=== PATIENT | male | born 1960 | race Caucasian/White ===

== ENCOUNTER 2025-01-04 06:23 | Inpatient (IN) | payer OTHER ==
[2025-01-04] MEDS ORDERED: SUCCINYLCHOLINE CHLORIDE 200 MG/10 ML SYRINGE ONE ×2 (07:35→15:20)
[2025-01-04] MEDS ORDERED: MIDAZOLAM HCL 2 MG/2 ML SINGLE DOSE VIAL ONE ×3 (07:35→15:39)
[2025-01-04] MEDS ORDERED: ROCURONIUM BROMIDE 50 MG/5 ML SYRINGE ONE (07:35)
[2025-01-04] MEDS ORDERED: PROPOFOL 20 ML ONE ×9 (07:35→16:23)
[2025-01-04] MEDS ORDERED: THROMBIN (BOVINE) 20,000 UNIT VIAL TP ONE (08:03)
[2025-01-04] MEDS ORDERED: VANCOMYCIN 1,000 MG VIAL (RESTRICTED TO ID ONLY) ONE ×2 (08:03→09:53)
[2025-01-04] MEDS ORDERED: THROMBIN (BOVINE) 5,000 UNIT VIAL TP ONE (08:03)
[2025-01-04] MEDS ORDERED: BUPIVACAINE HCL/PF 0.5% (5MG/ML) 10 ML VIAL ONE (08:03)
[2025-01-04] MEDS ORDERED: BUPIVACAINE LIPOSOME/PF (EXPAREL) 266 MG/20 ML VIAL ONE (08:04)
[2025-01-04] MEDS ORDERED: LIDOCAINE 1%/EPI 1:100000 (20 ML MULTI DOSE VIAL) ONE (08:04)
[2025-01-04 08:15] LABS: EPI CELLS 2 /uL (0-25.1); HYALINE CASTS 0 /uL (0-3.1); URINE APPEARANCE CLEAR; URINE BACTERIA 7 /uL (0-1359); URINE BILIRUBIN NEGATIVE (NEGATIVE); URINE COLOR YELLOW; URINE GLUCOSE (UA) NEGATIVE (NEGATIVE); URINE KETONE NEGATIVE (NEGATIVE); URINE LEUK ESTERASE NEGATIVE (NEGATIVE); URINE NITRITE NEGATIVE (NEGATIVE); URINE PROTEIN NEGATIVE (NEGATIVE); URINE RBC 21 /uL (0-23.9); URINE UROBILINOGEN 0.2 mg/dL (0.2-1.0); URINE WBC 2 /uL (0-25.8)
[2025-01-04] MEDS ORDERED: BACITRACIN ZINC 15 GM TUBE TOPICAL OINTMENT ONE (08:18)
[2025-01-04] MEDS ORDERED: KETAMINE HCL 200 MG/20 ML VIAL ONE (08:35)
[2025-01-04] MEDS ORDERED: PROPOFOL 60 ML ONE ×3 (08:41→12:06)
[2025-01-04] MEDS ORDERED: DEXAMETHASONE SOD PHOSPHATE 4 MG/1 ML VIAL ONE (08:58)
[2025-01-04] MEDS ORDERED: ONDANSETRON 4 MG/2 ML VIAL ONE ×2 (09:02→14:30)
[2025-01-04] MEDS ORDERED: METOPROLOL TARTRATE 5 MG/5 ML VIAL ONE (09:05)
[2025-01-04] MEDS: LIDOCAINE 1%/EPI 1:100000 (50 ML MULTI DOSE VIAL) INF ONE (09:30)
[2025-01-04] MEDS: BUPIVACAINE HCL/PF 0.5% (5MG/ML) 10 ML VIAL IJ ONE (09:45)
[2025-01-04] MEDS ORDERED: PROPOFOL 40 ML ONE (09:56)
[2025-01-04] MEDS: THROMBIN (BOVINE) 20,000 UNIT VIAL TP ONE (10:00)
[2025-01-04] MEDS: VANCOMYCIN 1,000 MG VIAL (RESTRICTED TO ID ONLY) IVPB ONE (10:30)
[2025-01-04] MEDS: BUPIVACAINE HCL 0.25% 125 MG/50 ML VIAL INF ONE (12:30)
[2025-01-04] MEDS ORDERED: BUPIVACAINE HCL/PF 0.25% (2.5MG/ML) 10 ML VIAL ONE (12:41)
[2025-01-04] MEDS ORDERED: ACETAMINOPHEN INJECTION 100 ML ONE (12:51)
[2025-01-04] MEDS ORDERED: TRANEXAMIC ACID 1000 MG/10 ML VIAL ONE (13:36)
[2025-01-04] MEDS ORDERED: ACETAMINOPHEN 325 MG TABLET (FP) PO PRN ×2 (14:59→18:06)
[2025-01-04] MEDS ORDERED: morphine CARPU-JECT 2 MG/1 ML DISP.SYRIN IVPUSH PRN ×2 (16:00→18:06)
[2025-01-04] MEDS: EPINEPHrine 1:1000 P/F - 1 MG/ML AMP IM ONE ×2 (16:10→16:30)
[2025-01-04] MEDS ORDERED: PROPOFOL 1,000,000 MCG/100 ML VIAL ONE (16:23)
[2025-01-04] MEDS: PROPOFOL 1,000,000 MCG/100 ML VIAL IVPB SCH (16:30)
[2025-01-04] MEDS ORDERED: PROPOFOL 1,000,000 MCG/100 ML VIAL IVPB SCH (16:45)
[2025-01-04] MEDS ORDERED: CEFAZOLIN 1 GM in DEXTROSE 5%-WATER - 50 ML IVPB SCH (18:00)
[2025-01-04 18:01] LABS: ARTERIAL BLD GAS O2 SATURATION 97.5 % (95-98); ARTERIAL BLOOD GAS BASE EXCESS -5.4 mmol/L (-2-2); ARTERIAL BLOOD GAS PCO2 45.10 mmHg (35-45); ARTERIAL BLOOD GAS PO2 110.7 mmHg (80-100); BG HCT 46.0 % (35.4-49)
[2025-01-04 18:02] LABS: ALLENS TEST POSITIVE
[2025-01-04 18:03] LABS: VENT MODE A/C; VENT RATE 10
[2025-01-04 18:13] LABS: MCHC 31.8 g/dl (32.3-36.5); MEAN CELL VOLUME 94.3 fl (79.0-92.2); MEAN PLT VOLUME 9.3 fl (9.4-12.4); RDW 13.7 % (12.2-16.4)
[2025-01-04] MEDS: LACTATED RINGERS SOLUTION 1,000 ML IV SCH (18:35)
[2025-01-04 18:44] LABS: GLUCOSE,RANDOM 163.0 mg/dL (74-106); TOT PROT 6.4 g/dl (6.4-8.2)
[2025-01-04 18:45] LABS: CO2 20.0 mmol/L (21-32)
[2025-01-04 18:47] LABS: ALK PHOS 45.0 U/L (40-150)
[2025-01-04 18:50] LABS: CREATININE 1.0 mg/dL (0.55-1.3); SGOT/AST 44.0 U/L (5-34); SGPT/ALT 26.0 U/L (0-55)
[2025-01-04] MEDS: methylPREDNISolone NA SUCC 125 MG/2 ML VIAL IVPUSH ONE (19:21)
[2025-01-04] MEDS: FENTANYL NS IVPB 500 MCG/100 ML BAG IVPB SCH (19:22)
[2025-01-04] MEDS: PIPERACILLIN/TAZOB 3.375 GM 3.375 GM in DEXTROSE 5%-WATER - 50 ML IVPB SCH (19:25)
[2025-01-04] MEDS: MUPIROCIN 2% TOPICAL OINTMENT FOR DECOLONIZATION NS SCH (21:12)
[2025-01-04] MEDS: CHLORHEXIDINE GLUCONATE 4% CLEANSER FOR DECOLONIZATION TP SCH (21:12)
[2025-01-04 21:16] LABS: ARTERIAL BLD GAS O2 SATURATION 98.5 % (95-98); ARTERIAL BLOOD GAS BASE EXCESS -2.5 mmol/L (-2-2); ARTERIAL BLOOD GAS PCO2 40.90 mmHg (35-45); ARTERIAL BLOOD GAS PO2 130.7 mmHg (80-100); BG HCT 53.0 % (35.4-49); O2 CONTENT 2.50 % vol
[2025-01-04] MEDS: DEXAMETHASONE SOD PHOSPHATE 10 MG/1 ML VIAL IVPB SCH (21:54)
[2025-01-04] MEDS: MAGNESIUM SULFATE IN WATER 2 GM/50 ML IVPB IVPB ONE (22:58)
[2025-01-05] MEDS ORDERED: DEXAMETHASONE 4 MG TABLET (FP) PO ONE (06:00)
[2025-01-05 06:40] LABS: ABSOLUTE IMMATURE GRANULOCYTES 0.04 x10^3/uL (0.0-0.031); BASOPHILS # 0.00 x10^3/uL (0.01-0.08); EOSINOPHIL % 0.0 % (0.8-7.0); EOSINOPHILS # 0.00 x10^3/uL (0.04-0.54); MCHC 32.0 g/dl (32.3-36.5); MEAN CELL VOLUME 93.5 fl (79.0-92.2); MEAN PLT VOLUME 9.3 fl (9.4-12.4); MONOCYTE # 0.48 x10^3/uL (0.30-0.82); MONOCYTE % 4.9 % (5.3-12.2); RDW 13.8 % (12.2-16.4)
[2025-01-05 07:01] LABS: GLUCOSE,RANDOM 136.0 mg/dL (74-106); TOT PROT 6.2 g/dl (6.4-8.2)
[2025-01-05 07:02] LABS: CO2 24.0 mmol/L (21-32)
[2025-01-05 07:06] LABS: SGOT/AST 41.0 U/L (5-34); SGPT/ALT 25.0 U/L (0-55)
[2025-01-05 09:05] LABS: ALK PHOS 40.0 U/L (40-150); CREATININE 1.21 mg/dL (0.55-1.3)
[2025-01-05] MEDS: FAMOTIDINE 20 MG/50 ML IVPB 20 MG/50 ML MG IVPB SCH (11:26)
[2025-01-05] MEDS: PIPERACILLIN/TAZOB 3.375 GM 3.375 GM in DEXTROSE 5%-WATER - 50 ML IVPB SCH (17:00)
[2025-01-05] MEDS: ROSUVASTATIN CA 20 MG TABLET PO SCH (21:01)
[2025-01-06] MEDS: PIPERACILLIN/TAZOB 4.5 GM 4.5 GM in DEXTROSE 5%-WATER 100 ML IVPB SCH (01:54)
[2025-01-06] MEDS: SODIUM CHLORIDE 1,000 ML IV STA (02:31)
[2025-01-06 06:38] LABS: MCHC 31.6 g/dl (32.3-36.5); MEAN CELL VOLUME 95.2 fl (79.0-92.2); MEAN PLT VOLUME 9.7 fl (9.4-12.4); RDW 14.2 % (12.2-16.4)
[2025-01-06 07:09] LABS: GLUCOSE,RANDOM 122.0 mg/dL (74-106); TOT PROT 5.5 g/dl (6.4-8.2)
[2025-01-06 07:10] LABS: CO2 22.0 mmol/L (21-32)
[2025-01-06 07:23] LABS: ALK PHOS 30.0 U/L (40-150)
[2025-01-06 07:27] LABS: CREATININE 1.06 mg/dL (0.55-1.3); SGOT/AST 28.0 U/L (5-34); SGPT/ALT 18.0 U/L (0-55)
[2025-01-06] MEDS: LACTATED RINGERS SOLUTION 1,000 ML IV SCH (09:19)
[2025-01-06] MEDS: DEXTROSE 5%-LACTATED RINGERS 1,000 ML IV SCH (11:26)
[2025-01-06] MEDS: MIDAZOLAM IN 0.9 % SOD.CHLORID 100 MG/100 ML PLAST..BAG IVPB SCH (17:06)
[2025-01-07 07:35] LABS: MCHC 31.1 g/dl (32.3-36.5); MEAN CELL VOLUME 96.9 fl (79.0-92.2); MEAN PLT VOLUME 9.7 fl (9.4-12.4); RDW 14.4 % (12.2-16.4)
[2025-01-07 08:01] LABS: GLUCOSE,RANDOM 123.0 mg/dL (74-106); TOT PROT 6.1 g/dl (6.4-8.2)
[2025-01-07 08:02] LABS: CO2 24.0 mmol/L (21-32)
[2025-01-07 08:06] LABS: SGOT/AST 26.0 U/L (5-34); SGPT/ALT 17.0 U/L (0-55)
[2025-01-07 08:07] LABS: CREATININE 0.98 mg/dL (0.55-1.3)
[2025-01-07 08:12] LABS: ALK PHOS 33.0 U/L (40-150)
[2025-01-07] MEDS: ACETAMINOPHEN 1000 MG/100 ML BAG IVPB PRN (16:41)
[2025-01-07] MEDS: AMINO ACIDS 4.25%/D5W 1,000 ML IV SCH (17:13)
[2025-01-07] MEDS: DEXAMETHASONE SOD PHOSPHATE 10 MG/1 ML VIAL IVPB SCH (18:03)
[2025-01-07] MEDS: FUROSEMIDE 40 MG/4 ML INJECTABLE VIAL IVPUSH ONE (20:42)
[2025-01-08 06:37] LABS: MCHC 31.1 g/dl (32.3-36.5); MEAN CELL VOLUME 96.3 fl (79.0-92.2); MEAN PLT VOLUME 9.7 fl (9.4-12.4); RDW 14.1 % (12.2-16.4)
[2025-01-08 06:57] LABS: GLUCOSE,RANDOM 128.0 mg/dL (74-106)
[2025-01-08 06:58] LABS: TOT PROT 5.4 g/dl (6.4-8.2)
[2025-01-08 06:59] LABS: CO2 31.0 mmol/L (21-32)
[2025-01-08 07:03] LABS: SGOT/AST 17.0 U/L (5-34); SGPT/ALT 14.0 U/L (0-55)
[2025-01-08 07:04] LABS: CREATININE 0.87 mg/dL (0.55-1.3)
[2025-01-08 07:22] LABS: ALK PHOS 30.0 U/L (40-150)
[2025-01-08] MEDS ORDERED: SODIUM PHOSPHATE - 15 MM in DEXTROSE 5%-WATER - 250 ML IVPB ONE (09:00)
[2025-01-08] MEDS: POTASSIUM PHOSPHATE 15 MM in DEXTROSE 5%-WATER - 250 ML IVPB ONE (09:31)
[2025-01-08] MEDS: POTASSIUM PHOSPHATE 15 MM in DEXTROSE 5%-WATER - 100 ML IVPB ONE (10:35)
[2025-01-08] MEDS: MEROPENEM 1 GM in DEXTROSE 5%-WATER 100 ML IVPB SCH (12:00)
[2025-01-08] MEDS: AMINO ACIDS 4.25%/D5W 1,000 ML IV SCH (12:30)
[2025-01-08 14:27] VITALS: BMI 35.0
[2025-01-08] MEDS: FAT EMUL/SOY/MCT/OLIV/FISH OIL 250 ML IV SCH (21:33)
[2025-01-08] MEDS ORDERED: SMOFLIPID - FAT EMUL/SOY/MCT/OLIV/FISH OIL 250 ML EMULSION IV SCH (22:00)
[2025-01-09 06:50] LABS: ABSOLUTE IMMATURE GRANULOCYTES 0.19 x10^3/uL (0.0-0.031); BASOPHILS # 0.03 x10^3/uL (0.01-0.08); EOSINOPHIL % 0.0 % (0.8-7.0); EOSINOPHILS # 0.00 x10^3/uL (0.04-0.54); MCHC 31.6 g/dl (32.3-36.5); MEAN CELL VOLUME 94.7 fl (79.0-92.2); MEAN PLT VOLUME 9.6 fl (9.4-12.4); MONOCYTE # 0.71 x10^3/uL (0.30-0.82); MONOCYTE % 6.1 % (5.3-12.2); RDW 13.4 % (12.2-16.4)
[2025-01-09 06:59] LABS: GLUCOSE,RANDOM 143.0 mg/dL (74-106)
[2025-01-09 07:00] LABS: TOT PROT 5.6 g/dl (6.4-8.2)
[2025-01-09 07:01] LABS: CO2 28.0 mmol/L (21-32)
[2025-01-09 07:05] LABS: SGOT/AST 13.0 U/L (5-34); SGPT/ALT 12.0 U/L (0-55)
[2025-01-09 07:06] LABS: CREATININE 0.73 mg/dL (0.55-1.3)
[2025-01-09 07:16] LABS: ALK PHOS 30.0 U/L (40-150)
[2025-01-09] MEDS: PANTOPRAZOLE SODIUM 40 MG VIAL IVPUSH SCH (09:52)
[2025-01-09] MEDS: POTASSIUM PHOSPHATE 30 MM in DEXTROSE 5%-WATER - 250 ML IVPB ONE (10:57)
[2025-01-10 07:43] LABS: MCHC 31.6 g/dl (32.3-36.5); MEAN CELL VOLUME 94.3 fl (79.0-92.2); MEAN PLT VOLUME 9.5 fl (9.4-12.4); RDW 13.2 % (12.2-16.4)
[2025-01-10] MEDS ORDERED: ATROPINE SULFATE 1 MG/10 ML DISP.SYRIN ONE (07:46)
[2025-01-10 08:07] LABS: GLUCOSE,RANDOM 146.0 mg/dL (74-106); TOT PROT 5.4 g/dl (6.4-8.2)
[2025-01-10 08:08] LABS: CO2 30.0 mmol/L (21-32)
[2025-01-10 08:11] LABS: ALK PHOS 33.0 U/L (40-150)
[2025-01-10 08:13] LABS: CREATININE 0.59 mg/dL (0.55-1.3); SGOT/AST 13.0 U/L (5-34); SGPT/ALT 10.0 U/L (0-55)
[2025-01-10 09:00] LABS: MCHC 32.1 g/dl (32.3-36.5); MEAN CELL VOLUME 94.3 fl (79.0-92.2); MEAN PLT VOLUME 9.9 fl (9.4-12.4); RDW 13.2 % (12.2-16.4)
[2025-01-10] MEDS: ASPIRIN COATED 81 MG TABLET.EC PO SCH (09:09)
[2025-01-10] MEDS: ENOXAPARIN NA (PORCINE) 40 MG/0.4 ML DISP.SYRIN SQ SCH (09:11)
[2025-01-10 09:27] LABS: GLUCOSE,RANDOM 143.0 mg/dL (74-106)
[2025-01-10 09:28] LABS: CO2 27.0 mmol/L (21-32)
[2025-01-10 09:32] LABS: SGOT/AST 15.0 U/L (5-34); SGPT/ALT 8.0 U/L (0-55)
[2025-01-10 09:33] LABS: ALK PHOS 33.0 U/L (40-150); CREATININE 0.61 mg/dL (0.55-1.3); TOT PROT 5.3 g/dl (6.4-8.2)
[2025-01-10] MEDS ORDERED: PROPOFOL 1,000,000 MCG/100 ML VIAL ONE (13:53)
[2025-01-10] MEDS: PROPOFOL 1,000,000 MCG/100 ML VIAL IVPB SCH (15:23)
[2025-01-10] MEDS ORDERED: DEXMEDETOMIDINE PREMIX 400 MCG/100 ML BAG IVPB SCH (16:15)
[2025-01-10] MEDS ORDERED: POTASSIUM PHOSPHATE 15 MM in SODIUM CHLORIDE 250 ML IVPB ONE (19:20)
[2025-01-10] MEDS ORDERED: POLYETHYLENE GLYCOL (HEALTHYLAX) 3350 17 GM PACKET PO SCH (19:30)
[2025-01-10] MEDS: CALCIUM GLUCONATE 10% - 1,000 MG/10 ML VIAL IVPB ONE (20:04)
[2025-01-10] MEDS: Methylnaltrexone Bromide 12 MG/0.6 ML KIT SQ SCH (20:15)
[2025-01-10] MEDS: POTASSIUM PHOSPHATE 15 MM in SODIUM CHLORIDE 250 ML IVPB ONE (21:14)
[2025-01-10] MEDS: POLYETHYLENE GLYCOL (HEALTHYLAX) 3350 17 GM PACKET NGT SCH (21:45)
[2025-01-11 07:01] LABS: MCHC 32.1 g/dl (32.3-36.5); MEAN CELL VOLUME 92.9 fl (79.0-92.2); MEAN PLT VOLUME 10.3 fl (9.4-12.4); RDW 13.1 % (12.2-16.4)
[2025-01-11 07:19] LABS: GLUCOSE,RANDOM 143.0 mg/dL (74-106)
[2025-01-11 07:20] LABS: TOT PROT 5.7 g/dl (6.4-8.2)
[2025-01-11 07:25] LABS: SGOT/AST 23.0 U/L (5-34); SGPT/ALT 24.0 U/L (0-55)
[2025-01-11 07:26] LABS: CREATININE 0.67 mg/dL (0.55-1.3)
[2025-01-11 07:29] LABS: ALK PHOS 38.0 U/L (40-150); CO2 25.0 mmol/L (21-32)
[2025-01-11] MEDS: FUROSEMIDE 40 MG/4 ML INJECTABLE VIAL IVPUSH ONE (09:29)
[2025-01-11] MEDS: ALBUTEROL SO4 2.5/IPRATROPIUM 0.5 INH SOL 3 ML VIAL.NEB. NEB SCH (12:00)
[2025-01-11] MEDS: VANCOMYCIN PREMIX 1.5 GM 1,500 MG/300 ML BAG IVPB ONE (14:04)
[2025-01-11] MEDS: VANCOMYCIN/WATER 1250 MG 1,250 MG/250 ML BAG IVPB SCH (15:45)
[2025-01-11] MEDS: AMINO ACIDS/PROTEIN HYDROLYS 30 ML LIQUID.PKT PO SCH (18:15)
[2025-01-11] MEDS ORDERED: VANCOMYCIN HCL 1,500 MG in DEXTROSE 5%-WATER - 250 ML IVPB SCH (21:30)
[2025-01-11] MEDS ORDERED: FENTANYL NS IVPB 500 MCG/100 ML BAG IVPB ONE (21:46)
[2025-01-11] MEDS: DEXAMETHASONE SOD PHOSPHATE 10 MG/1 ML VIAL IVPB SCH (21:52)
[2025-01-11] MEDS: FENTANYL NS IVPB 500 MCG/100 ML BAG IVPB SCH (21:53)
[2025-01-11] MEDS ORDERED: VANCOMYCIN PREMIX 1.5 GM 1,500 MG/300 ML BAG IVPB SCH (22:00)
[2025-01-12 06:44] LABS: ABSOLUTE IMMATURE GRANULOCYTES 0.49 x10^3/uL (0.0-0.031); BASOPHILS # 0.07 x10^3/uL (0.01-0.08); EOSINOPHIL % 0.0 % (0.8-7.0); EOSINOPHILS # 0.00 x10^3/uL (0.04-0.54); MCHC 31.9 g/dl (32.3-36.5); MEAN CELL VOLUME 92.4 fl (79.0-92.2); MEAN PLT VOLUME 10.1 fl (9.4-12.4); MONOCYTE # 0.67 x10^3/uL (0.30-0.82); MONOCYTE % 5.8 % (5.3-12.2); RDW 13.3 % (12.2-16.4)
[2025-01-12 07:30] LABS: CREATININE 1.0 mg/dL (0.55-1.3); GLUCOSE,RANDOM 156.0 mg/dL (74-106)
[2025-01-12 07:31] LABS: CO2 27.0 mmol/L (21-32); TOT PROT 5.9 g/dl (6.4-8.2)
[2025-01-12 07:32] LABS: ALK PHOS 44.0 U/L (40-150); SGOT/AST 95.0 U/L (5-34); SGPT/ALT 154.0 U/L (0-55)
[2025-01-12] MEDS ORDERED: DEXMEDETOMIDINE PREMIX 400 MCG/100 ML BAG IVPB SCH ×2 (09:44→09:45)
[2025-01-12] MEDS: DEXMEDETOMIDINE PREMIX 400 MCG/100 ML BAG IVPB SCH (09:50)
[2025-01-12] MEDS: methylPREDNISolone NA SUCC 40 MG/1 ML VIAL IVPUSH SCH (11:47)
[2025-01-12] MEDS: SCOPOLAMINE HYDROBROMIDE 1 PATCH PATCH.TD72 TD SCH (18:12)
[2025-01-13 06:59] LABS: ABSOLUTE IMMATURE GRANULOCYTES 0.42 x10^3/uL (0.0-0.031); BASOPHILS # 0.04 x10^3/uL (0.01-0.08); EOSINOPHIL % 0.0 % (0.8-7.0); EOSINOPHILS # 0.00 x10^3/uL (0.04-0.54); MCHC 32.9 g/dl (32.3-36.5); MEAN CELL VOLUME 89.6 fl (79.0-92.2); MEAN PLT VOLUME 9.6 fl (9.4-12.4); MONOCYTE # 0.96 x10^3/uL (0.30-0.82); MONOCYTE % 7.7 % (5.3-12.2); RDW 12.7 % (12.2-16.4)
[2025-01-13 07:01] LABS: GLUCOSE,RANDOM 120.0 mg/dL (74-106); TOT PROT 5.7 g/dl (6.4-8.2)
[2025-01-13 07:07] LABS: CREATININE 0.63 mg/dL (0.55-1.3); SGOT/AST 49.0 U/L (5-34); SGPT/ALT 143.0 U/L (0-55)
[2025-01-13 07:25] LABS: ALK PHOS 42.0 U/L (40-150); CO2 24.0 mmol/L (21-32)
[2025-01-13] MEDS ORDERED: METOPROLOL TARTRATE 25 MG TABLET (FP) NGT SCH (08:00)
[2025-01-13] MEDS ORDERED: NAPH,MB-DB/K PH,MBDB POWDER PACKET PO ONE (08:28)
[2025-01-13 09:02] LABS: ARTERIAL BLD GAS O2 SATURATION 94.1 % (95-98); ARTERIAL BLOOD GAS BASE EXCESS 7.5 mmol/L (-2-2); ARTERIAL BLOOD GAS PCO2 36.30 mmHg (35-45); ARTERIAL BLOOD GAS PO2 61.4 mmHg (80-100); BG HCT 49.0 % (35.4-49); O2 CONTENT 2.18 % vol
[2025-01-13 09:12] LABS: ALLENS TEST POSITIVE
[2025-01-13] MEDS ORDERED: MAGNESIUM 2GM/50ML STERILE WATER IVPB IVPB ONE (09:15)
[2025-01-13] MEDS ORDERED: TICAGRELOR 90 MG TABLET PO SCH (10:00)
[2025-01-13 10:42] LABS: ARTERIAL BLD GAS O2 SATURATION 90.6 % (95-98); ARTERIAL BLOOD GAS BASE EXCESS 6.6 mmol/L (-2-2); ARTERIAL BLOOD GAS PCO2 35.50 mmHg (35-45); ARTERIAL BLOOD GAS PO2 51.9 mmHg (80-100); BG HCT 49.0 % (35.4-49)
[2025-01-13 10:43] LABS: ALLENS TEST POSITIVE
[2025-01-13 10:47] LABS: LACTIC ACID 2.1 mmol/L (0.4-2.0)
[2025-01-13] MEDS: ACETYLCYSTEINE 20% 200MG/ML 4 ML VIAL *FOR ORAL / INH USE ONLY NEB SCH (11:13)
[2025-01-13] MEDS: ALBUTEROL SO4 0.083% IH SOL 2.5 MG/3 ML VIAL.NEB. NEB SCH (11:13)
[2025-01-13] MEDS ORDERED: ALBUTEROL SO4 0.083% IH SOL 2.5 MG/3 ML VIAL.NEB. NEB SCH (12:00)
[2025-01-13] MEDS: POTASSIUM PHOSPHATE 30 MM in DEXTROSE 5%-WATER - 250 ML IVPB ONE (12:12)
[2025-01-13] MEDS: TAMSULOSIN HCL 0.4 MG CAP PO SCH (21:34)
[2025-01-13] MEDS ORDERED: TAMSULOSIN HCL 0.4 MG CAP PO SCH ×2 (22:00)
[2025-01-13] MEDS: TICAGRELOR 90 MG TABLET PO SCH (23:18)
[2025-01-14 07:09] LABS: RDW 13.3 % (12.2-16.4)
[2025-01-14 07:11] LABS: ABSOLUTE IMMATURE GRANULOCYTES 0.23 x10^3/uL (0.0-0.031); BASOPHILS # 0.04 x10^3/uL (0.01-0.08); EOSINOPHIL % 0.5 % (0.8-7.0); EOSINOPHILS # 0.06 x10^3/uL (0.04-0.54); IMMATURE PLATELET FRACTION # 5.10 x10^3/uL; MCHC 32.3 g/dl (32.3-36.5); MEAN CELL VOLUME 92.5 fl (79.0-92.2); MONOCYTE # 0.70 x10^3/uL (0.30-0.82); MONOCYTE % 5.9 % (5.3-12.2)
[2025-01-14 07:17] LABS: GLUCOSE,RANDOM 101.0 mg/dL (74-106); TOT PROT 5.6 g/dl (6.4-8.2)
[2025-01-14 07:22] LABS: SGOT/AST 70.0 U/L (5-34); SGPT/ALT 126.0 U/L (0-55)
[2025-01-14 07:23] LABS: ALK PHOS 44.0 U/L (40-150); CO2 31.0 mmol/L (21-32); CREATININE 0.71 mg/dL (0.55-1.3)
[2025-01-14] MEDS: SODIUM CHLORIDE 500 ML IV STA (08:34)
[2025-01-14 09:46] LABS: ARTERIAL BLD GAS O2 SATURATION 95.6 % (95-98); ARTERIAL BLOOD GAS BASE EXCESS 3.8 mmol/L (-2-2); ARTERIAL BLOOD GAS PCO2 37.70 mmHg (35-45); ARTERIAL BLOOD GAS PO2 72.5 mmHg (80-100); BG HCT 48.0 % (35.4-49); O2 CONTENT 2.17 % vol
[2025-01-14 09:53] LABS: ALLENS TEST POSITIVE; VENT MODE S/T; VENT RATE 14
[2025-01-14] MEDS: PANTOPRAZOLE 20 MG TABLET PO SCH (10:27)
[2025-01-14] MEDS: ERYTHROMYCIN 0.5% OPHTHALMIC OINTMENT 3.5 GM TUBE OD SCH (14:27)
[2025-01-15 06:52] LABS: ABSOLUTE IMMATURE GRANULOCYTES 0.32 x10^3/uL (0.0-0.031); BASOPHILS # 0.07 x10^3/uL (0.01-0.08); EOSINOPHIL % 1.5 % (0.8-7.0); EOSINOPHILS # 0.20 x10^3/uL (0.04-0.54); MCHC 32.2 g/dl (32.3-36.5); MEAN CELL VOLUME 91.8 fl (79.0-92.2); MEAN PLT VOLUME 10.2 fl (9.4-12.4); MONOCYTE # 0.66 x10^3/uL (0.30-0.82); MONOCYTE % 4.9 % (5.3-12.2); RDW 13.6 % (12.2-16.4)
[2025-01-15 07:33] LABS: GLUCOSE,RANDOM 93.0 mg/dL (74-106)
[2025-01-15 07:34] LABS: CO2 27.0 mmol/L (21-32)
[2025-01-15 07:39] LABS: CREATININE 0.79 mg/dL (0.55-1.3)
[2025-01-15] MEDS: KCL 10 MEQ IVPB 10 MEQ/100 ML INFUS.BAG IVPB SCH (09:18)
[2025-01-15] MEDS: ACETAMINOPHEN 1000 MG/100 ML BAG IVPB PRN (12:04)
[2025-01-15] MEDS: LIDOCAINE 5% TOPICAL PATCH TP SCH (12:14)
[2025-01-15] MEDS: POLYETHYLENE GLYCOL (HEALTHYLAX) 3350 17 GM PACKET PO SCH (12:14)
[2025-01-15] MEDS: TAMSULOSIN HCL 0.4 MG CAP PO ONE (18:47)
[2025-01-15] MEDS: LIDOCAINE PATCH REMOVAL MC SCH (21:13)
[2025-01-16 07:15] LABS: ABSOLUTE IMMATURE GRANULOCYTES 0.38 x10^3/uL (0.0-0.031); BASOPHILS # 0.05 x10^3/uL (0.01-0.08); EOSINOPHIL % 1.5 % (0.8-7.0); EOSINOPHILS # 0.24 x10^3/uL (0.04-0.54); MCHC 32.4 g/dl (32.3-36.5); MEAN CELL VOLUME 93.8 fl (79.0-92.2); MEAN PLT VOLUME 10.1 fl (9.4-12.4); MONOCYTE # 0.78 x10^3/uL (0.30-0.82); MONOCYTE % 4.9 % (5.3-12.2); RDW 13.6 % (12.2-16.4)
[2025-01-16 07:20] LABS: INR 1.2 (0.83-1.09); PROTHROMBIN TIME (PATIENT) 13.2 SEC (9.7-13.0)
[2025-01-16 07:21] LABS: GLUCOSE,RANDOM 130.0 mg/dL (74-106); TOT PROT 5.5 g/dl (6.4-8.2)
[2025-01-16 07:22] LABS: CO2 27.0 mmol/L (21-32)
[2025-01-16 07:24] LABS: ALK PHOS 48.0 U/L (40-150)
[2025-01-16 07:26] LABS: SGPT/ALT 120.0 U/L (0-55)
[2025-01-16 07:27] LABS: CREATININE 0.84 mg/dL (0.55-1.3); SGOT/AST 84.0 U/L (5-34)
[2025-01-16] MEDS: TAMSULOSIN HCL 0.4 MG CAP PO SCH ×2 (08:48→21:31)
[2025-01-16] MEDS: KCL 10 MEQ IVPB 10 MEQ/100 ML INFUS.BAG IVPB SCH (08:48)
[2025-01-16] MEDS: predniSONE 20 MG TABLET (UD) PO SCH (09:21)
[2025-01-16] MEDS ORDERED: predniSONE 20 MG TABLET (UD) PO SCH (10:00)
[2025-01-16] MEDS: CYANOCOBALAMIN (VITAMIN B-12) 1000 MCG/1 ML VIAL IM SCH (10:26)
[2025-01-16] MEDS: FOLIC ACID 5 MG/1 ML SQ ONE (10:30)
[2025-01-16] MEDS ORDERED: SENNOSIDES 8.6MG TABLET (FP) PO PRN (10:58)
[2025-01-16] MEDS ORDERED: MELATONIN 5 MG TABLETS PO PRN (10:59)
[2025-01-16] MEDS: PIPERACILLIN/TAZOB 3.375 GM 3.375 GM in DEXTROSE 5%-WATER - 50 ML IVPB SCH (14:06)
[2025-01-16] MEDS: ACETYLCYSTEINE 20% 200MG/ML 4 ML VIAL *FOR ORAL / INH USE ONLY NEB SCH (20:25)
[2025-01-16] MEDS: ALBUTEROL SO4 0.083% IH SOL 2.5 MG/3 ML VIAL.NEB. NEB SCH (20:25)
[2025-01-16] MEDS: ROSUVASTATIN CA 20 MG TABLET PO SCH (21:31)
[2025-01-16] MEDS: LIDOCAINE PATCH REMOVAL MC SCH (21:32)
[2025-01-16] MEDS ORDERED: CHLORHEXIDINE GLUCONATE 4% CLEANSER FOR DECOLONIZATION TP SCH (22:00)
[2025-01-16] MEDS: TICAGRELOR 90 MG TABLET PO SCH (23:00)
[2025-01-17] MEDS: PIPERACILLIN/TAZOB 3.375 GM 3.375 GM in DEXTROSE 5%-WATER - 50 ML IVPB SCH (01:46)
[2025-01-17 07:31] LABS: ABSOLUTE IMMATURE GRANULOCYTES 0.39 x10^3/uL (0.0-0.031); BASOPHILS # 0.06 x10^3/uL (0.01-0.08); EOSINOPHIL % 1.5 % (0.8-7.0); EOSINOPHILS # 0.25 x10^3/uL (0.04-0.54); MCHC 32.3 g/dl (32.3-36.5); MEAN CELL VOLUME 92.9 fl (79.0-92.2); MEAN PLT VOLUME 10.1 fl (9.4-12.4); MONOCYTE # 0.89 x10^3/uL (0.30-0.82); MONOCYTE % 5.5 % (5.3-12.2); RDW 13.6 % (12.2-16.4)
[2025-01-17 07:51] LABS: GLUCOSE,RANDOM 85.0 mg/dL (74-106); TOT PROT 6.1 g/dl (6.4-8.2)
[2025-01-17 07:52] LABS: CO2 26.0 mmol/L (21-32)
[2025-01-17 07:54] LABS: ALK PHOS 52.0 U/L (40-150)
[2025-01-17 07:56] LABS: SGOT/AST 84.0 U/L (5-34); SGPT/ALT 128.0 U/L (0-55)
[2025-01-17 07:57] LABS: CREATININE 0.79 mg/dL (0.55-1.3)
[2025-01-17] MEDS: ENOXAPARIN NA (PORCINE) 40 MG/0.4 ML DISP.SYRIN SQ SCH (09:44)
[2025-01-17] MEDS: ASPIRIN COATED 81 MG TABLET.EC PO SCH (09:45)
[2025-01-17] MEDS: PANTOPRAZOLE 20 MG TABLET PO SCH (09:45)
[2025-01-17] MEDS: POLYETHYLENE GLYCOL (HEALTHYLAX) 3350 17 GM PACKET PO SCH (09:45)
[2025-01-17] MEDS: LIDOCAINE 5% TOPICAL PATCH TP SCH (09:45)
[2025-01-17] MEDS: predniSONE 20 MG TABLET (UD) PO SCH ×2 (09:52→09:55)
[2025-01-18] MEDS: predniSONE 10 MG TABLET (UD) PO SCH (09:08)
[2025-01-18 09:51] LABS: ABSOLUTE IMMATURE GRANULOCYTES 0.45 x10^3/uL (0.0-0.031); BASOPHILS # 0.08 x10^3/uL (0.01-0.08); EOSINOPHIL % 2.5 % (0.8-7.0); EOSINOPHILS # 0.37 x10^3/uL (0.04-0.54); MCHC 31.9 g/dl (32.3-36.5); MEAN CELL VOLUME 93.2 fl (79.0-92.2); MEAN PLT VOLUME 10.0 fl (9.4-12.4); MONOCYTE # 1.05 x10^3/uL (0.30-0.82); MONOCYTE % 7.0 % (5.3-12.2); RDW 13.8 % (12.2-16.4)
[2025-01-18] MEDS ORDERED: predniSONE 10 MG TABLET (UD) PO SCH (10:00)
[2025-01-18 11:48] LABS: GLUCOSE,RANDOM 83.0 mg/dL (74-106)
[2025-01-18 11:49] LABS: TOT PROT 6.0 g/dl (6.4-8.2)
[2025-01-18 11:50] LABS: CO2 24.0 mmol/L (21-32)
[2025-01-18 11:51] LABS: ALK PHOS 53.0 U/L (40-150)
[2025-01-18 11:54] LABS: CREATININE 0.86 mg/dL (0.55-1.3); SGOT/AST 56.0 U/L (5-34); SGPT/ALT 116.0 U/L (0-55)
[2025-01-18] MEDS ORDERED: ALBUTEROL SO4 0.083% IH SOL 2.5 MG/3 ML VIAL.NEB. NEB PRN (12:30)
[2025-01-19] MEDS: SENNOSIDES 8.6MG TABLET (FP) PO PRN (22:25)
[2025-01-19] MEDS: MELATONIN 5 MG TABLETS PO PRN (22:26)
[2025-01-20 07:35] LABS: ABSOLUTE IMMATURE GRANULOCYTES 0.42 x10^3/uL (0.0-0.031); BASOPHILS # 0.06 x10^3/uL (0.01-0.08); EOSINOPHIL % 3.1 % (0.8-7.0); EOSINOPHILS # 0.35 x10^3/uL (0.04-0.54); MCHC 32.8 g/dl (32.3-36.5); MEAN CELL VOLUME 90.8 fl (79.0-92.2); MEAN PLT VOLUME 9.5 fl (9.4-12.4); MONOCYTE # 0.67 x10^3/uL (0.30-0.82); MONOCYTE % 6.0 % (5.3-12.2); RDW 13.6 % (12.2-16.4)
[2025-01-20 08:22] LABS: GLUCOSE,RANDOM 98.0 mg/dL (74-106); TOT PROT 6.1 g/dl (6.4-8.2)
[2025-01-20 08:23] LABS: CO2 24.0 mmol/L (21-32)
[2025-01-20 08:25] LABS: ALK PHOS 55.0 U/L (40-150)
[2025-01-20 08:28] LABS: CREATININE 0.79 mg/dL (0.55-1.3); SGOT/AST 36.0 U/L (5-34); SGPT/ALT 94.0 U/L (0-55)
[2025-01-20] MEDS ORDERED: predniSONE 20 MG TABLET (UD) PO SCH (10:00)
[2025-01-20 13:33] VITALS: RESP 18
[2025-01-21] MEDS: predniSONE 20 MG TABLET (UD) PO ONE (13:19)
[2025-01-21 14:09] VITALS: BP 128/68; PULSE 90; TEMP 97.1
[2025-01-22] MEDS ORDERED: predniSONE 10 MG TABLET (UD) PO SCH ×2 (10:00)
[2025-01-23] MEDS ORDERED: CYANOCOBALAMIN (VITAMIN B-12) 1000 MCG/1 ML VIAL IM SCH (10:00)
== END 2025-01-21 14:15 | DRG 429 ==
LOC: J2C 06:23 → JICU 18:43 → J6S 01-16 19:53
PROVIDERS: ADMIT Neurological Surgery; ATTEND Family Medicine
PROC: 01N10ZZ Release Cervical Nerve, Open Approach (ICD-10-PCS; 2025-01-04)
PROC: 0RB30ZZ Excision of Cervical Vertebral Disc, Open Approach (ICD-10-PCS; 2025-01-04)
PROC: 0RG4071 Fusion of Cervicothoracic Vertebral Joint with Autologous Tissue Substitute, Posterior Approach, Posterior Column, Open Approach (ICD-10-PCS; 2025-01-04)
PROC: 4A11X4G Monitoring of Peripheral Nervous Electrical Activity, Intraoperative, External Approach (ICD-10-PCS; 2025-01-04)
PROC: B54NZZA Ultrasonography of Left Upper Extremity Veins, Guidance (ICD-10-PCS; 2025-01-04)
PROC: 0BH18EZ Insertion of Endotracheal Airway into Trachea, Via Natural or Artificial Opening Endoscopic (ICD-10-PCS; 2025-01-04)
PROC: 5A1955Z Respiratory Ventilation, Greater than 96 Consecutive Hours (ICD-10-PCS; 2025-01-04)
PROC: 0RG20A0 Fusion of 2 or more Cervical Vertebral Joints with Interbody Fusion Device, Anterior Approach, Anterior Column, Open Approach (ICD-10-PCS; principal; 2025-01-04 08:00)
PROC: 0RG2071 Fusion of 2 or more Cervical Vertebral Joints with Autologous Tissue Substitute, Posterior Approach, Posterior Column, Open Approach (ICD-10-PCS; 2025-01-04 08:00)
PROC: 05HC33Z Insertion of Infusion Device into Left Basilic Vein, Percutaneous Approach (ICD-10-PCS; 2025-01-11)
DX: M50.01 Cervical disc disorder with myelopathy, high cervical region (principal); J95.821 Acute postprocedural respiratory failure; I97.121 Postprocedural cardiac arrest following other surgery; I69.354 Hemiplegia and hemiparesis following cerebral infarction affecting left non-dominant side; M48.02 Spinal stenosis, cervical region; M50.80 Other cervical disc disorders, unspecified cervical region; M40.293 Other kyphosis, cervicothoracic region; M53.0 Cervicocranial syndrome; R29.898 Other symptoms and signs involving the musculoskeletal system; I25.10 Atherosclerotic heart disease of native coronary artery without angina pectoris; Y83.8 Other surgical procedures as the cause of abnormal reaction of the patient, or of later complication, without mention of misadventure at the time of the procedure; M06.9 Rheumatoid arthritis, unspecified; L40.50 Arthropathic psoriasis, unspecified; M40.292 Other kyphosis, cervical region; E78.5 Hyperlipidemia, unspecified; E66.9 Obesity, unspecified; Z68.32 Body mass index [BMI] 32.0-32.9, adult; T78.3XXA Angioneurotic edema, initial encounter; T88.8XXA Other specified complications of surgical and medical care, not elsewhere classified, initial encounter; J44.9 Chronic obstructive pulmonary disease, unspecified; E83.42 Hypomagnesemia; E83.39 Other disorders of phosphorus metabolism; Z85.46 Personal history of malignant neoplasm of prostate; Z95.5 Presence of coronary angioplasty implant and graft
CPT/HCPCS: 36415; 36600; 70450-TC; 71045-TC-FY; 72040-TC; 72050-TC-FY; 72070-TC-FY; 76000-TC-FY; 80048; 80053; 81003; 82803; 82962; 83036; 83605; 83735; 83880; 84100; 85025; 85027; 85610; 86850; 86900; 86901; 87040; 87070; 87077; 87081; 87205; 87637-QW; 87899; 93005; 93010; 93306-TC; 93971-TC-LT; 94002; 94010; 94640; 94660; 94760; 95816; 97116-GP; 97162-GP; C1713; C1889; G0480; J0666; J1100